=== PATIENT | female | born 1995 ===

== ENCOUNTER 2018-06-18 20:48 | Emergency (ER) | payer SELFPAY ==
[2018-06-18 20:56] VITALS: O2SAT 100
[2018-06-18] MEDS ORDERED: Albuterol 0.083% Inhal Sol (2.5 mg/3 mL) UD INH STA (21:17)
[2018-06-18] MEDS ORDERED: Albuterol-Ipratrop 3 mg / 0.5 (3 ml) UD IH STA (21:17)
[2018-06-18] MEDS ORDERED: Albuterol 0.083% Inhal Sol (2.5 mg/3 mL) UD ONE (21:31)
[2018-06-18] MEDS ORDERED: Albuterol-Ipratrop 3 mg / 0.5 (3 ml) UD ONE (21:31)
--- NOTE | 2018-06-18 22:01 | C.PDOC ---
History Of Present Illness 23 year old female with PMHx of asthma presents to the ED c/o cough, wheezing for the past 2 weeks. Patient states he has no PMD, no medications or nebulizer at home for his asthma. Patient denies fever, chills, nausea, vomit, rash, recent travel, sick contacts. Time Seen by Provider: 06/18/18 20:54 Chief Complaint (Nursing): Shortness Of Breath History Per: Patient History/Exam Limitations: no limitations Onset/Duration Of Symptoms: Days Current Symptoms Are (Timing): Still Present Initiating Event: Upper Respiratory Illness Quality: Tightness Exacerbating Factor(s): Coughing Current Respiratory Medications: See Home Med List Recent travel outside of the [place]: No Additional History Per: Patient Past Medical History Reviewed: Historical Data, Nursing Documentation, Vital Signs Vital Signs: Last Vital Signs Temp 98.2 F 06/18/18 20:52 Pulse 77 06/18/18 20:52 Resp 16 06/18/18 20:52 BP 106/72 06/18/18 20:52 Pulse Ox 100 06/18/18 20:52 - Medical History PMH: Asthma, Hiatal Hernia Surgical History: No Surg Hx Family History: States: Unknown Family Hx - Social History Hx Alcohol Use: No Hx Substance Use: No Review Of Systems Constitutional: Negative for: Fever, Chills ENT: Negative for: Nose Congestion Cardiovascular: Negative for: Chest Pain Respiratory: Positive for: Cough, Shortness of Breath, Wheezing Gastrointestinal: Negative for: Nausea, Vomiting Skin: Negative for: Rash Neurological: Negative for: Weakness, Numbness Physical Exam - Physical Exam Appears: Non-toxic, No Acute Distress Skin: Normal Color, Warm, Dry Head: Atraumatic, Normacephalic Eye(s): bilateral: Normal Inspection Ear(s): Bilateral: Normal Oral Mucosa: Moist Throat: Normal, No Erythema, No Exudate Chest: Symmetrical Cardiovascular: Rhythm Regular Respiratory: No Rales, No Rhonchi, Wheezing Extremity: Normal ROM, No Tenderness, No Swelling Neurological/Psych: Oriented x3, Normal Speech, Normal Cognition Gait: Steady ED Course And Treatment O2 Sat by Pulse Oximetry: 100 (ON RA) Pulse Ox Interpretation: Normal - Radiology CXR: Interpreted by Me, Viewed By Me CXR Interpretation: Yes: No Acute Disease. No: Infiltrates Progress Note: Plan: - CXR. - Albuterol. - Duoneb. - Zithromax 500 mg PO. - Pepcid 20 mg PO. - Prednisone 60 mg PO. Luisn was feeling better after medications, no longer wheezing, in NARD. Patient was advised to follow up with clinic for further evaluation. Disposition - Disposition Referrals: at [facility] [Outside] Disposition: HOME/ ROUTINE Disposition Time: 22:01 Condition: IMPROVED Additional Instructions: Follow up in Clinic within 1-2 days. Return to ED if feel worse. Prescriptions: Albuterol 0.083% [Albuterol Sulfate 3 Ml] 3 ml IH .Q4-6H #100 vial Nebulizer [Compact Compressor Nebulizer] 1 dev XX PRN PRN #1 dev PRN Reason: Wheezing Mask, Face [Nebulizer Aerosol Mask Adult] 1 dev XX PRN PRN #1 dev PRN Reason: Wheezing predniSONE [predniSONE Tab] 2 tab PO DAILY #8 tab Benzonatate [Tessalon Perles] 2 tab PO TID #60 sgl Albuterol HFA [Ventolin HFA 90 mcg/actuation (8 g)] 1 puff IH .Q4-6H #1 inhaler Azithromycin [Zithromax] 250 mg PO DAILY #4 tab Instructions: Acute Bronchitis Forms: [employer] (Hungarian), Work Excuse Print Language: CUBAN - Clinical Impression Clinical Impression: Bronchitis - 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 - Scribe Statement The provider has reviewed the documentation as recorded by the Scribe Gus Jackson All medical record entries made by the Scribe were at my direction and personally dictated by me. I have reviewed the chart and agree that the record accurately reflects my personal performance of the history, physical exam, medical decision making, and the department course for this patient. I have also personally directed, reviewed, and agree with the discharge instructions and disposition.
[2018-06-18 23:00] VITALS: BP 103/69; PULSE 93; RESP 18; TEMP 98.3
--- NOTE | 2018-06-19 10:32 | RAD ---
Date of service: 06/18/2018 HISTORY: cough/wheezing COMPARISON: No prior. TECHNIQUE: Chest PA and lateral FINDINGS: LUNGS: No active pulmonary disease. PLEURA: No significant pleural effusion identified. No pneumothorax apparent. CARDIOVASCULAR: No aortic atherosclerotic calcification present. Normal cardiac size. OSSEOUS STRUCTURES: No significant abnormalities. VISUALIZED UPPER ABDOMEN: Normal. OTHER FINDINGS: None. IMPRESSION: No active disease.
== END 2018-06-18 23:27 | disposition home or self-care (01) ==
LOC: C.ER 20:48
DX: J40 Bronchitis, not specified as acute or chronic (principal)

== ENCOUNTER 2018-07-30 16:53 | Emergency (ER) | payer OTHER ==
[2018-07-30 16:58] VITALS: RESP 18; O2SAT 100
[2018-07-30 17:33] LABS: HCG,QUALITATIVE URINE NEGATIVE (NEGATIVE); SQUAMOUS EPITHIAL 3 /hpf (0-5); URINE BILIRUBIN NEGATIVE (NEGATIVE); URINE BLOOD NEGATIVE (NEGATIVE); URINE CLARITY Clear (Clear); URINE COLOR Straw (YELLOW); URINE GLUCOSE (UA) NORMAL (Normal); URINE LEUKOCYTE ESTERASE NEG Leu/uL (Negative); URINE PROTEIN NEGATIVE (NEGATIVE); URINE UROBILINOGEN NORMAL mg/dL (0.2-1.0)
[2018-07-30] MEDS ORDERED: Sodium Chloride 0.9% 1,000 ML IV ONE (17:48)
[2018-07-30] MEDS ORDERED: Sodium Chloride 0.9% 1,000 ML ONE (17:59)
--- NOTE | 2018-07-30 18:06 | C.PDOC ---
History Of Present Illness 23 year old female presents to the ED for evaluation of upper abdominal pain which began around one month ago. Patient states symptoms worsened today, with vomiting. Patient denies fever, chills. <Eleanor Camilo - Last Filed: 07/30/18 18:42> She has had similar symptoms with gastric reflux in the past. She has a history of [facility]atal [facility] <Ely Lucas - Last Filed: 07/30/18 20:34> History Per: Patient History/Exam Limitations: no limitations Onset/Duration Of Symptoms: Other (one month ) Current Symptoms Are (Timing): Still Present Location Of Pain/Discomfort: Other (upper abdomen ) Quality Of Discomfort: "Pain" Associated Symptoms: Vomiting. denies: Fever, Chills <Eleanor Camilo - Last Filed: 07/30/18 18:42> <Ely Lucas - Last Filed: 07/30/18 20:34> Time Seen by Provider: 07/30/18 17:43 Chief Complaint (Nursing): Abdominal Pain Past Medical History Reviewed: Historical Data, Nursing Documentation, Vital Signs Vital Signs: Last Vital Signs Temp 98.2 F 07/30/18 16:55 Pulse 71 07/30/18 16:55 Resp 18 07/30/18 16:55 BP 102/68 07/30/18 16:55 Pulse Ox 100 07/30/18 16:55 - Medical History PMH: Asthma, Hiatal Hernia Surgical History: No Surg Hx Family History: States: Unknown Family Hx - Social History Hx Alcohol Use: No Hx Substance Use: No - Immunization History Hx Tetanus Toxoid Vaccination: No Hx Influenza Vaccination: No Hx Pneumococcal Vaccination: No <Eleanor Camilo - Last Filed: 07/30/18 18:42> Vital Signs: Last Vital Signs Temp 98.2 F 07/30/18 16:55 Pulse 71 07/30/18 16:55 Resp 18 07/30/18 16:55 BP 102/68 07/30/18 16:55 Pulse Ox 100 07/30/18 18:42 Other Surgeries: Hiatal hernia repair <Eyl Lucas - Last Filed: 07/30/18 20:34> Review Of Systems Constitutional: Negative for: Fever, Chills Gastrointestinal: Positive for: Nausea, Vomiting, Abdominal Pain (upper abdomen ) <Eleanor Camilo - Last Filed: 07/30/18 18:42> Physical Exam - Physical Exam Appears: Non-toxic, No Acute Distress Skin: Normal Color, Warm, Dry Head: Atraumatic, Normacephalic Eye(s): bilateral: Normal Inspection Oral Mucosa: Moist Neck: Supple Cardiovascular: Rhythm Regular, No Murmur Respiratory: Normal Breath Sounds Gastrointestinal/Abdominal: Soft, Tenderness (upper abdomen ), No Guarding, No Rebound Extremity: Normal ROM, Capillary Refill (less than 2 seconds ) Neurological/Psych: Normal Speech, Normal Cognition Gait: Steady <Eleanor Camilo - Last Filed: 07/30/18 18:42> ED Course And Treatment - Laboratory Results Result Diagrams: 07/30/18 18:08 12 18:08 Lab Interpretation: Normal O2 Sat by Pulse Oximetry: 100 (on RA ) Pulse Ox Interpretation: Normal Progress Note: Bloodwork, urinalysis, US Abdomen ordered and reviewed. Toradol IVP, Zofran PO, and IV Fluids given. Reassessment Condition: Improved <Eleanor Camilo - Last Filed: 07/30/18 18:42> - Laboratory Results Result Diagrams: 07/30/18 18:08 07/30/18 18:08 Lab Interpretation: Normal - CT Scan/US US Abdomen, RUQ Other Rad Studies (CT/US): Read By Radiologist, Radiology Report Reviewed CT/US Interpretation: EXAM: US Abdomen, Right Upper Quadrant. CLINICAL HISTORY: Pain. TECHNIQUE: Right upper quadrant sonography performed with image documentation. COMPARISON: None provided. FINDINGS: LIVER: Within normal limits in size and echogenicity. No mass. GALLBLADDER: The gallbladder appears within normal limits. No gallbladder wall thickening or pericholecystic fluid. COMMON BILE DUCT: Within normal limits in size. PANCREAS: The distal pancreas is obscured by bowel gas. The visualized portion of the pancreas appears within normal limits. RIGHT KIDNEY: Unremarkable. Normal renal contours. No renal mass or calculus. No hydronephrosis. IMPRESSION: Unremarkable right upper quadrant ultrasound. Reevaluation Time: 20:26 <Ely Lucas - Last Filed: 07/30/18 20:34> Disposition - Disposition Disposition Time: 19:00 - POA Present On Arrival: None <Eleanor Camilo - Last Filed: 07/30/18 18:42> Counseled Patient/Family Regarding: Studies Performed, Diagnosis, Need For Followup - Disposition Disposition Time: 20:31 <Ely Lucas - Last Filed: 07/30/18 20:34> - Disposition Referrals: [facility] [Outside] Disposition: HOME/ ROUTINE Condition: IMPROVED Instructions: Acid Reflux (Gastroesophageal Reflux Disease) in Adults, Stomach Ache and Stomach Upset Forms: [employer] (Romansh) - Clinical Impression Clinical Impression: Gastroesophageal reflux disease, Epigastric abdominal pain - 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 - Scribe Statement The provider has reviewed the documentation as recorded by the Scribe (Peace Liang) All medical record entries made by the Scribe were at my direction and personally dictated by me. I have reviewed the chart and agree that the record accurately reflects my personal performance of the history, physical exam, medical decision making, and the department course for this patient. I have also personally directed, reviewed, and agree with the discharge instructions and disposition. <Eleanor Camilo - Last Filed: 07/30/18 18:42> Physician Patient Turnover Patient Signed Over To: Ely Lucas Handoff Comments: pending US <Eleanor Camilo - Last Filed: 07/30/18 18:42>
[2018-07-30 18:23] LABS: ALB/GLOB RATIO 1.2 (1.0-2.1); ALT/SGPT 19 U/L (9-52); AST/SGOT 20 U/L (14-36); BLOOD UREA NITROGEN 9 mg/dL (7-17); CALCIUM 8.8 mg/dl (8.6-10.4); GFR NON-AFRICAN AMERICAN > 60; LIPASE 204 U/L (23-300)
[2018-07-30 18:24] LABS: BASO % 0.3 % (0.0-2.0); EOS # 0.1 K/uL (0.0-0.7); EOS % 0.8 % (0.0-4.0); HEMOGLOBIN 12.3 g/dL (11.0-16.0); LYMPH # 3.7 K/uL (1.0-4.3); LYMPH % 35.2 % (20.0-40.0); MEAN CORPUSCULAR HEMOGLOBIN 31.6 pg (27.0-31.0); MEAN PLATELET VOLUME 8.8 fL (7.2-11.7); MONO # 0.8 K/uL (0.0-0.8); MONO % 7.9 % (0.0-10.0); NEUT # 5.9 K/uL (1.8-7.0); NEUT % 55.8 % (50.0-75.0); NRBC % 0.1 % (0.0-2.0); RBC 3.9 Mil/uL (3.80-5.20); RED CELL DISTRIBUTION WIDTH 13.7 % (11.5-14.5); WHITE BLOOD COUNT 10.5 K/uL (4.8-10.8)
[2018-07-30 20:57] VITALS: BP 100/66; PULSE 74; TEMP 98.4
--- NOTE | 2018-07-31 10:51 | US ---
HISTORY: Pain COMPARISON: None available. TECHNIQUE: Sonographic evaluation of the abdomen. FINDINGS: LIVER: Measures 17.2 cm in sagittal dimension and appears within normal limits of size, shape, and echotexture. No focal hepatic mass identified. The main portal vein appears patent with normal directional flow. No intrahepatic bile duct dilatation. GALLBLADDER: No gallstones. No gallbladder wall thickening. Negative sonographic Wang's sign as assessed by the user experience team lead. COMMON BILE DUCT: Measures 3 mm. PANCREAS: Not well visualized. RIGHT KIDNEY: Measures 10.1 x 4.6 x 5.0cm. No obstructing calculus or hydronephrosis identified. LEFT KIDNEY: Measures 10.2 x 5.2 x 5.2cm. No obstructing calculus or hydronephrosis identified. SPLEEN: Measures approximately 8.2 cm. AORTA: Limited views appear unremarkable. IVC: Limited views appear unremarkable. OTHER FINDINGS: None. IMPRESSION: Unremarkable abdominal ultrasound as above. Preliminary impression was provided by VERONICA Jensen.
== END 2018-07-30 20:58 | disposition home or self-care (01) ==
LOC: C.ER 16:53
DX: K21.9 Gastro-esophageal reflux disease without esophagitis (principal); R10.13 Epigastric pain
CPT/HCPCS: 76700; 80053; 81001; 83690; 84703; 85025; 96361; 96374; 96375; 99284; J1885; J2405; J7030

== ENCOUNTER 2018-10-16 12:28 | Emergency (ER) | payer OTHER ==
[2018-10-16 12:45] VITALS: RESP 18; TEMP 98.2; O2SAT 100
[2018-10-16 13:48] LABS: BASO % 0.5 % (0.0-2.0); EOS % 0.5 % (0.0-4.0); HEMOGLOBIN 13.1 g/dL (11.0-16.0); LYMPH # 2.2 K/uL (1.0-4.3); LYMPH % 25.1 % (20.0-40.0); MEAN CELL VOLUME 93.8 fL (81.0-99.0); MEAN CORPUSCULAR HEMOGLOBIN 31.3 pg (27.0-31.0); MEAN CORPUSCULAR HGB CONC 33.4 g/dL (33.0-37.0); MEAN PLATELET VOLUME 8.9 fL (7.2-11.7); MONO # 0.7 K/uL (0.0-0.8); MONO % 7.7 % (0.0-10.0); NEUT # 5.9 K/uL (1.8-7.0); NEUT % 66.2 % (50.0-75.0); NRBC % 0.1 % (0.0-2.0); RBC 4.19 Mil/uL (3.80-5.20); RED CELL DISTRIBUTION WIDTH 13.3 % (11.5-14.5); WHITE BLOOD COUNT 8.9 K/uL (4.8-10.8)
[2018-10-16 13:52] LABS: HCG,QUALITATIVE URINE NEGATIVE (NEGATIVE)
[2018-10-16 13:56] LABS: SQUAMOUS EPITHIAL 2 /hpf (0-5); URINE BILIRUBIN NEGATIVE (NEGATIVE); URINE BLOOD NEGATIVE (NEGATIVE); URINE CLARITY Hazy (Clear); URINE COLOR Yellow (YELLOW); URINE GLUCOSE (UA) NORMAL (Normal); URINE LEUKOCYTE ESTERASE NEG Leu/uL (Negative); URINE PROTEIN NEGATIVE (NEGATIVE); URINE UROBILINOGEN NORMAL mg/dL (0.2-1.0)
--- NOTE | 2018-10-16 14:01 | RAD ---
HISTORY: SOB, h/o asthma COMPARISON: Chest x-ray performed 06/18/18 TECHNIQUE: Chest PA and lateral FINDINGS: LUNGS: No focal consolidation. Please note that chest x-ray has limited sensitivity for the detection of pulmonary masses. PLEURA: No significant pleural effusion identified. No definite pneumothorax . CARDIOVASCULAR: Heart size appears within normal limits. No significant aortic atherosclerotic calcification identified. OSSEOUS STRUCTURES: No acute osseous abnormality identified. VISUALIZED UPPER ABDOMEN: Unremarkable. OTHER FINDINGS: None. IMPRESSION: No focal consolidation.
[2018-10-16 14:11] LABS: ALB/GLOB RATIO 1.3 (1.0-2.1); ALBUMIN 4.5 g/dL (3.5-5.0); ALT/SGPT 8 U/L (9-52); AST/SGOT 27 U/L (14-36); BLOOD UREA NITROGEN 7 mg/dL (7-17); CALCIUM 9.3 mg/dl (8.6-10.4); GFR NON-AFRICAN AMERICAN > 60
--- NOTE | 2018-10-16 14:14 | C.PDOC ---
History Of Present Illness 23 year old female presents to ED with complaint of dyspnea on exertion, SOB, fatigue, and malaise for the past 2 weeks. Patient has a PMHx of asthma and uses her inhaler once a day. She states she occasionally uses a nebulizer tr eatment with Albuterol. Patient states that she can not go to work because of her fatigue. Patient lives at home with her and children. She works as a seamstress. Patient denies cough, smoking, and substance abuse. Time Seen by Provider: 10/16/18 13:18 Chief Complaint (Nursing): Shortness Of Breath History Per: Patient History/Exam Limitations: no limitations Onset/Duration Of Symptoms: Other (2 weeks) Current Symptoms Are (Timing): Still Present Exacerbating Factor(s): Exertion Current Respiratory Medications: Albuterol Past Medical History Reviewed: Historical Data, Nursing Documentation, Vital Signs Vital Signs: Last Vital Signs Temp 98.2 F 10/16/18 12:40 Pulse 107 H 10/16/18 12:40 Resp 18 10/16/18 13:44 BP 128/79 10/16/18 12:40 Pulse Ox 100 10/16/18 12:40 - Medical History PMH: Asthma, Hiatal Hernia Surgical History: No Surg Hx Family History: States: Unknown Family Hx - Social History Hx Alcohol Use: No Hx Substance Use: No - Immunization History Hx Tetanus Toxoid Vaccination: No Hx Influenza Vaccination: No Hx Pneumococcal Vaccination: No Review Of Systems Constitutional: Positive for: Malaise, Other (fatigue). Negative for: Fever, Chills, Weakness Cardiovascular: Negative for: Chest Pain, Palpitations Respiratory: Positive for: Shortness of Breath, Other (Dyspnea on exertion). Negative for: Cough Gastrointestinal: Negative for: Nausea, Vomiting Neurological: Negative for: Weakness, Numbness, Dizziness Physical Exam - Physical Exam Appears: Well, Non-toxic, No Acute Distress Skin: Normal Color, Warm, Dry Head: Atraumatic, Normacephalic Neck: Normal ROM, Supple Chest: Symmetrical, No Deformity Cardiovascular: Rhythm Regular, No Murmur Respiratory: No Accessory Muscle Use, No Rales, No Rhonchi, No Wheezing Gastrointestinal/Abdominal: Soft, No Tenderness Extremity: Bilateral: Atraumatic, Normal Color And Temperature Neurological/Psych: Oriented x3, Normal Speech, Normal Cognition ED Course And Treatment - Laboratory Results Result Diagrams: 10/16/18 13:44 10/16/18 13:44 Lab Results: D-Dimer, Quantitative 250 ng/mlDDU (0-243) H 10/16/18 13:44 Total Bilirubin 0.3 mg/dL (0.2-1.3) 10/16/18 13:44 AST 27 U/L (14-36) 10/16/18 13:44 ALT 8 U/L (9-52) L D 10/16/18 13:44 Alkaline Phosphatase 50 U/L (38-126) 10/16/18 13:44 Total Protein 7.9 g/dL (6.3-8.3) 10/16/18 13:44 Albumin 4.5 g/dL (3.5-5.0) 10/16/18 13:44 Globulin 3.4 gm/dL (2.2-3.9) 10/16/18 13:44 Albumin/Globulin Ratio 1.3 (1.0-2.1) 10/16/18 13:44 Urine Color Yellow (YELLOW) 10/16/18 13:44 Urine Clarity Hazy (Clear) 10/16/18 13:44 Urine pH 6.0 (5.0-8.0) 10/16/18 13:44 Ur Specific [place] 1.017 (1.003-1.030) 10/16/18 13:44 Urine Protein Negative mg/dL (NEGATIVE) 10/16/18 13:44 Urine Glucose (UA) Normal mg/dL (Normal) 10/16/18 13:44 Urine Ketones Negative mg/dL (NEGATIVE) 10/16/18 13:44 Urine Blood Negative (NEGATIVE) 10/16/18 13:44 Urine Nitrate Negative (NEGATIVE) 10/16/18 13:44 Urine Bilirubin Negative (NEGATIVE) 10/16/18 13:44 Urine Urobilinogen Normal mg/dL (0.2-1.0) 10/16/18 13:44 Ur Leukocyte Esterase Neg [place]/uL (Negative) 10/16/18 13:44 Urine WBC (Auto) < 1 /hpf (0-5) 10/16/18 13:44 Urine RBC (Auto) 1 /hpf (0-3) 10/16/18 13:44 Ur Squamous Epith Cells 2 /hpf (0-5) 10/16/18 13:44 Urine HCG, Qual Negative (NEGATIVE) 10/16/18 13:44 Urine HCG, Qual Negative (NEGATIVE) 10/16/18 13:44 Lab Interpretation: Normal (d-dimer 250 H, trop neg. ua neg. tox neg) Urine POC: Negative ECG: Interpreted By Me ECG Rhythm: Sinus Rhythm ECG Interpretation: Normal Rate From EC O2 Sat by Pulse Oximetry: 100 (RA) Pulse Ox Interpretation: Normal - Radiology CXR: Interpreted by Me CXR Interpretation: Yes: No Acute Disease - CT Scan/US CTA Chest Other Rad Studies (CT/US): Radiology Report Reviewed (neg for PE) CT/US Interpretation: Accession No. : [id number]. Patient Name / ID : DICK ELLER / [id number]. Exam Date : 10/16/2018 15:16:38 ( Approved ). Study Comment : Sex / Age : F / 23Y. Creator : Mallory Chavez. Dictator : Kimberli Burkett MD. Starch Factory Laborer : Manager Of Transportation : Kimberli Burkett MD. Approver2 : Report Date : 10/16/2018 15:41:25. My Comment : . Date of service: 10/16/2018. CTA chest PE protocol. Indication: HERRING, asthma, elev D-dimer 250H. Technique: Contiguous axial images were obtained through the chest with intravenous contrast enhancement. Sagittal and coronal reconstructions were generated and reviewed. This CT exam was performed using 1 or more of the following dose reduction techniques: Automated exposure control, adjustment of the MAA and/or kV according to patient size, and/or use of iterative reconstruction technique. IV contrast: 100 cc Visipaque 320 IV. . Radiation dose (DLP): 230.64 MGy-cm. Comparison: Chest x-ray performed 10/16/18. Findings: Visualized portions of the inferior thyroid gland appear unremarkable. The mediastinal and hilar vascular structures appear within normal limits. The heart appears within normal limits of size. No large central or segmental pulmonary embolus evident. No focal consolidation. No pleural effusion. No pneumothorax. No suspicious pulmonary nodules measuring greater than 5 mm. Limited visualized portions of the upper abdomen appear grossly unremarkable. Suboptimal assessment of bowel loops due to paucity of intra-abdominal fat and absence of oral contrast. No acute osseous abnormality is detected. Impression: No large central or segmental pulmonary embolus identified. Progress Note: EKG and CXR ordered for patient. Labs ordered with D-dimer and troponin for patient. Reevaluation Time: 16:26 Reassessment Condition: Improved Medical Decision Making Medical Decision Making: fatigue + d-dimer 250 neg for suspicion of DVT/PE clear lungs, no sig asthma symptoms consider viral syndrome and f/u in 2 weeks. Disposition Doctor Will See Patient In The: Office Counseled Patient/Family Regarding: Studies Performed, Diagnosis - Disposition Referrals: [facility] [Outside] [facility] [Outside] [facility] [Outside] [facility] [Outside] Disposition: HOME/ ROUTINE Disposition Time: 16:27 Condition: GOOD Additional Instructions: examenes normales, no hay anemia examenes del laboratorio neg CT del pecho negativo Sigue garza Albuterol hoda necessario Instructions: Fatigue (DC), Shortness of Breath (Dyspnea) (DC), Viral Syndrome (DC) Forms: [employer] (Pashto) Print Language: STATELESS - Clinical Impression Clinical Impression: Fatigue, Dyspnea on exertion - Scribe Statement The provider has reviewed the documentation as recorded by the Scribe (Irene Lawson) All medical record entries made by the Scribe were at my direction and personally dictated by me. I have reviewed the chart and agree that the record accurately reflects my personal performance of the history, physical exam, medical decision making, and the department course for this patient. I have also personally directed, reviewed, and agree with the discharge instructions and disposition.
[2018-10-16 14:19] LABS: B-TYPE NATRIURETIC PEPTIDE 75.3 pg/mL (0-450)
[2018-10-16 14:20] LABS: BARBITURATES, UR NEGATIVE (NEGATIVE); BENZODIAZEPINES, UR NEGATIVE (NEGATIVE); OPIATES, UR NEGATIVE (NEGATIVE); PHENCYCLIDINE, UR NEGATIVE (NEGATIVE)
[2018-10-16] MEDS ORDERED: Iodixanol 320 MG/ML 100 ML BOTTLE IV ONE (14:47)
--- NOTE | 2018-10-16 16:16 | CT ---
Date of service: 10/16/2018 CTA chest PE protocol Indication: HERRING, asthma, elev D-dimer 250H Technique: Contiguous axial images were obtained through the chest with intravenous contrast enhancement. Sagittal and coronal reconstructions were generated and reviewed. This CT exam was performed using 1 or more of the following dose reduction techniques: Automated exposure control, adjustment of the MAA and/or kV according to patient size, and/or use of iterative reconstruction technique. IV contrast: 100 cc Visipaque 320 IV Radiation dose (DLP): 230.64 MGy-cm. Comparison: Chest x-ray performed 10/16/18 Findings: Visualized portions of the inferior thyroid gland appear unremarkable. The mediastinal and hilar vascular structures appear within normal limits. The heart appears within normal limits of size. No large central or segmental pulmonary embolus evident. No focal consolidation. No pleural effusion. No pneumothorax. No suspicious pulmonary nodules measuring greater than 5 mm. Limited visualized portions of the upper abdomen appear grossly unremarkable. Suboptimal assessment of bowel loops due to paucity of intra-abdominal fat and absence of oral contrast. No acute osseous abnormality is detected. Impression: No large central or segmental pulmonary embolus identified.
[2018-10-16 16:40] VITALS: BP 96/62; PULSE 79
--- NOTE | 2018-10-20 22:31 | CARD ---
APPROVED REPORT Date of service: 10/16/2018 EKG Measurement Heart [id number] <Conclusion> Normal sinus rhythm Possible Left atrial enlargement Borderline ECG
== END 2018-10-16 16:45 | disposition home or self-care (01) ==
LOC: C.ER 12:28
DX: R53.83 Other fatigue (principal); R06.09 Other forms of dyspnea
CPT/HCPCS: 71046; 71275; 80053; 80324; 80345; 80346; 80349; 80353; 80358; 80361; 81001; 83880; 83992; 84484; 84703; 85025; 85378; 93005; 99284; Q9967